=== PATIENT | female | born 1960 | race Caucasian/White ===

== ENCOUNTER → 2016-12-08 13:31 | Outpatient (CLI) | payer BC | END | disposition home or self-care (01) | LOC: D.CT 13:31 | DX: R10.31 Right lower quadrant pain (principal) ==

== ENCOUNTER → 2017-02-02 19:28 | Outpatient (CLI) | payer BC | END | disposition home or self-care (01) | LOC: D.SLEEP 12-29 20:00 | DX: G47.30 Sleep apnea, unspecified (principal) ==